=== PATIENT | male | born 1950 | race Caucasian/White ===

== ENCOUNTER 2021-07-13 00:20 | Day surgery (SDC) | payer MEDICARE, OTHER, SELFPAY ==
[2021-07-04 13:36] VITALS: BMI 23.9
--- NOTE | 2021-07-13 09:08 | WPDANESEPPF ---
Anes - Initial Pre Proc Eval Procedure: Operation Date: 07/13/21 10:30 Proposed Procedures p Screening Colonoscopy - Norberto Kovacs MD Date/Time: 07/13/21 09:08 Surgeon: Norberto Kvoacs MD Pre Op Diagnosis: neoplasm screening Patient Data Age: 71 Gender: M Height: 1.83 m Weight: 80 kg Allergies Allergy/AdvReac Type Severity Reaction Status Date / Time No Known Allergies Allergy Mild Verified 07/13/21 09:16 Home Medications Medication Instructions Recorded Confirmed Type Adult One Daily Multivitamin 1 tab-cap BYMOUTH DAILY 07/04/21 07/04/21 History Aleve 1 tab-cap PO PRN PRN 07/04/21 07/04/21 History aspirin 81 mg PO DAILY 07/04/21 07/04/21 History atorvastatin 40 mg PO DAILY 07/04/21 07/04/21 History coQ10 (ubiquinol) 1 tab-cap PO DAILY 07/04/21 07/04/21 History nitroglycerin 0.4 mg SUBLINGUAL PRN PRN 07/04/21 07/04/21 History Patient hx anesthesia problems: none Family hx anesthesia problems: none Results Review: All pre-operative results and documents have been reviewed as part of the pre-operative evaluation. [facility] Past Medical History Medical History (Updated 07/13/21 @ 09:09 by Venkatesh Mock MD) CAD (coronary artery disease) Hyperlipidemia Prostate CA Surgical History Surgical History (Updated 07/13/21 @ 09:09 by Venkatesh Mock MD) H/O prostatectomy History of coronary artery stent placement Social History Social History Smoking packs per day: 1 Smoking cigarettes per day: 20.0 Years smoked: 10 Smoking pack-years: 10.00 Smoking status: Former smoker Tobacco type: cigarettes Alcohol intake: current Drinks per week: 6 Substance use: never Substance use type: does not use Living arrangements: with family Spiritual care concerns: No Anes - Eval Final PreProcedure Day of Procedure 07/13/21 09:08 Patient weight: normal Heart: regular rate and rhythm Lungs: clear to auscultation and normal air movement Airway: Mallampati scale class II Neurological: alert and oriented Last oral intake: >/= 8 hours ASA classification: III Emergent: no Anesthetic plan: proceed Anesthesia type and monitoring: general GIVS Results Review: All pre-operative results and documents have been reviewed as part of the pre-operative evaluation. Informed Consent: The patient's anesthetic plan and its attendant risks and benefits were discussed with the patient/family/POA. Questions were solicited and answers provided to the satisfaction of the patient/family/POA.
[2021-07-13 09:17] VITALS: BP 144/77; PULSE 60; RESP 20; TEMP 35.9; O2SAT 99
[2021-07-13] MEDS: LACTATED RINGERS 1,000 ML 150 ML IV CONT (09:28)
--- NOTE | 2021-07-13 10:45 | PM.HPGS ---
History of Present Illness History of Present Illness Consent: Risks, benefits, and alternatives have been discussed and questions answered. Patient agrees to proceed with procedure. Chief complaint: neoplasm screening Narrative: Du Cramer is a 71 year old male here for screening colonoscopy, last one over 10 years ago. Review of Systems Constitutional: Constitutional: Denies headache(s) and Denies weakness Eyes: Eyes: Denies blurry vision ENT: Reports Normal hearing present, Denies headache(s) and Denies neck pain Cardiovascular: Cardiovascular: Denies chest pain and Denies dyspnea Respiratory: Respiratory: Denies dyspnea Gastrointestinal: Gastrointestinal: Reports no additional gastrointestinal complaints Genitourinary: Genitourinary: Denies dysuria Musculoskeletal: Musculoskeletal: Denies neck pain Integumentary/Breasts: Skin/Breast: Denies dry skin Neurologic: Reports Normal hearing present, Denies headache(s) and Denies weakness Psychiatric: Psychiatric: Denies anxiety Endocrine: Endocrine: Denies change in body appearance Hematologic/Lymphatic: Hematologic/Lymphatic: Denies easy bleeding Allergic/Immunologic: Allergic/Immunologic: Denies urticaria PMFSH Past Medical History Medical History (Updated 07/13/21 @ 10:45 by Norberto Kovacs MD) CAD (coronary artery disease) Colon cancer screening Hyperlipidemia Prostate CA Surgical History Surgical History (Updated 07/13/21 @ 09:09 by Venkatesh Mock MD) H/O prostatectomy History of coronary artery stent placement Social History Social History Smoking packs per day: 1 Smoking cigarettes per day: 20.0 Years smoked: 10 Smoking pack-years: 10.00 Smoking status: Former smoker Tobacco type: cigarettes Alcohol intake: current Drinks per week: 6 Substance use: never Substance use type: does not use Living arrangements: with family Spiritual care concerns: No Meds Home Medications and Allergies Home Medications Medication Instructions Recorded Confirmed Type Adult One Daily Multivitamin 1 tab-cap BYMOUTH DAILY 07/04/21 07/04/21 History Aleve 1 tab-cap PO PRN PRN 07/04/21 07/04/21 History aspirin 81 mg PO DAILY 07/04/21 07/04/21 History atorvastatin 40 mg PO DAILY 07/04/21 07/04/21 History coQ10 (ubiquinol) 1 tab-cap PO DAILY 07/04/21 07/04/21 History nitroglycerin 0.4 mg SUBLINGUAL PRN PRN 07/04/21 07/04/21 History Allergies Allergy/AdvReac Type Severity Reaction Status Date / Time No Known Allergies Allergy Mild Verified 07/13/21 09:16 Vital Signs Vital Signs - 24 hr 07/13/21 09:17 Temperature 96.6 F L Pulse Rate 60 Respiratory Rate 20 Blood Pressure 144/77 H Pulse Oximetry 99 Exam Const: General: comfortable and no acute distress HENMT: General nose exam: Normal nares present Eyes: General: appearance normal, both eyes and all related structures Neck: Neck: no JVD Resp: Auscultation: clear to auscultation bilaterally Cardio: Rate: regular rate Rhythm: regular rhythm GI: Inspection: non-distended GI Palp: Yes Soft to palpation Skin: General skin exam: normal color Neuro: General: gait normal Speech: normal speech Extrem: General: normal to inspection Psych: Mental Status: mental status grossly normal Assessment and Plan Assessment and plan (1) Colon cancer screening: Code(s): Z12.11 - Encounter for screening for malignant neoplasm of colon Status: Acute Assessment and Plan: colonoscopy
[2021-07-13 11:09] VITALS: BP 96/65; PULSE 60; RESP 18; O2SAT 100
[2021-07-13 11:19] VITALS: BP 113/71; PULSE 56; RESP 22; O2SAT 100
[2021-07-13 11:29] VITALS: BP 113/69; PULSE 58; RESP 20; O2SAT 100
== END 2021-07-13 11:30 | disposition home or self-care (01) ==
PROVIDERS: PCP Hospitalist; Visit Provider Internal Medicine Gastroenterology
PROC: 0DJD8ZZ Inspection of Lower Intestinal Tract, Via Natural or Artificial Opening Endoscopic (ICD-10-PCS; CPT 45378; principal; 2021-07-13 10:30)
DX: Z12.11 Encounter for screening for malignant neoplasm of colon (principal); D12.0 Benign neoplasm of cecum; D12.3 Benign neoplasm of transverse colon; K57.30 Diverticulosis of large intestine without perforation or abscess without bleeding; K64.8 Other hemorrhoids; I25.10 Atherosclerotic heart disease of native coronary artery without angina pectoris; E78.5 Hyperlipidemia, unspecified; Z85.46 Personal history of malignant neoplasm of prostate; Z79.82 Long term (current) use of aspirin; Z95.5 Presence of coronary angioplasty implant and graft; Z87.891 Personal history of nicotine dependence
CPT/HCPCS: 45385; 45380; 88305; J2704; J7120